=== PATIENT | female | born 1985 | race Hispanic/Latino ===

== ENCOUNTER 2016-09-01 18:17 | Emergency (ER) | payer OTHER ==
[~2016-09-01] VITALS: Ht 170.2 cm; Wt 99.8 kg
[~2016-09-01 18:17] MED LIST: BENZONATATE200 M1 PO; CYCLOBENZAPRINE5 M2 PO; DELTASONE20 MG PO; KEFLEX500 M1 PO; MOBIC15 M1 PO; PROVENTIL HFA6.7 GM INH; ZITHROMAX250 M2 PO
--- NOTE | 2016-09-01 19:37 | ED GI/GU/ABDOMINAL COMPLAINT ---
History of Present Illness General Chief Complaint: Abdominal Pain/Flank Pain Stated Complaint: PT HAVING STOMACH PAINS Source: patient Exam Limitations: no limitations Vital Signs & Intake/Output Vital Signs & Intake/Output Vital Signs Date Time Temp Pulse Resp B/P Pulse O2 O2 Flow FiO2 Ox Delivery Rate 09/01 2120 66 18 120/75 97 09/01 1830 98.1 87 18 153/90 100 Room Air Allergies Coded Allergies: NO KNOWN ALLERGIES (03/09/16) Reconcile Medications Albuterol Sulfate (Proventil Hfa) 90 MCG HFA.AER.AD 2 PUF INH Q4 SOB Meloxicam (Mobic) 15 MG TABLET 1 TAB PO DAILY PRN PAIN/INFLAMMATION Prednisone (Deltasone) 20 MG TABLET 1 TAB PO BID BRONCHITIS Triage Note: 30 YO FEMALE TO TRIAGE C/O LOWER ABD CRAMPING AND WATERY DIARRHEA. STATES HAS BEEN GOING ON FOR APPROX 1 MONTH. Triage Nurses Notes Reviewed? yes ? N Is pt currently ? No HPI: 30-year-old female here for evaluation of abdominal cramping with changes in her stools for one month. She reports some nausea but no vomiting, constipation and then loose stools that are greasy that it occurs in the morning in the evening time. She denies any fever or chills. She reports no alleviating or aggravating factors. She does report that she had [employer] last night and when asked she notes that she has coffee with cream every morning and that triggers a bowel movement. The pain is mild at this time. She has been eating and drinking okay. Past History Travel History Traveled to [place] past 21 day No Medical History Any Pertinent Medical History? 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 No Review of Systems Review of Systems Constitutional: Denies: no symptoms. EENTM: Denies: no symptoms. Respiratory: Denies: no symptoms. Cardiovascular: Denies: no symptoms. GI: Reports: see HPI, abdominal pain, nausea, changes in stool. Genitourinary: Denies: no symptoms. Musculoskeletal: Denies: no symptoms. Skin: Denies: no symptoms. Neurological/Psychological: Denies: no symptoms. Hematologic/Endocrine: Denies: no symptoms. Immunologic/Allergic: Denies: no symptoms. Physical Exam Physical Exam General Appearance: well developed/nourished, no apparent distress, alert, awake , comfortable Head: atraumatic, normal appearance Eyes: Bilateral: normal appearance, PERRL, EOMI. Ears, Nose, Throat, Mouth: hearing grossly normal, moist mucous membrane, Tympanic normal Neck: normal inspection, supple, full range of motion, normal alignment Respiratory: normal breath sounds, chest non-tender, no respiratory distress Cardiovascular: regular rate/rhythm Peripheral Pulses: 2+ radial (R), 2+ radial (L) Gastrointestinal: normal bowel sounds, soft, tenderness (SUPRAPUBIC PAIN, LLQ PAIN) Back: normal inspection, normal range of motion Extremities: normal range of motion Neurologic/Psych: no motor/sensory deficits, awake, alert, oriented x 3, normal gait, normal mood/affect Skin: intact, normal color, warm/dry Core Measures ACS in differential dx? No Severe Sepsis Present: No Septic Shock Present: No Progress Differential Diagnosis: appendicitis, biliary colic, cholecystitis, diverticulitis, inflamm bowel dis, UTI/pyelo Plan of Care: Orders Procedure Date/time Status CULTURE,URINE 09/01 1938 Active URINALYSIS 09/01 1938 Complete LIPASE 09/01 1938 Complete HUMAN BETA HCG SCREEN 09/01 1938 Complete COMPREHENSIVE METABOLIC PANEL 09/01 1938 Complete CBC WITHOUT DIFFERENTIAL 09/01 1938 Complete AMYLASE 09/01 1938 Complete Laboratory Tests 09/01/16 2100: Anion Gap 11, Estimated GFR > 60, BUN/Creatinine Ratio 25.7 H, Glucose 86, Calcium 9.6, Total Bilirubin 0.3, AST 17, ALT 33, Alkaline Phosphatase 51, Total Protein 8.1, Albumin 4.7, Globulin 3.4, Albumin/Globulin Ratio 1.4, Amylase 42, Lipase 64, Total Beta HCG NEGATIVE, CBC w Diff NO MAN DIFF REQ, RBC 4.90, MCV 86.8, MCH 29.0, RDW 13.8, MPV 10.3, Gran % 59.1, Lymphocytes % 29.1, Monocytes % 7.9, Eosinophils % 3.6, Basophils % 0.3, Absolute Granulocytes 4.9, Absolute Lymphocytes 2.4, Absolute Monocytes 0.7 H, Absolute Eosinophils 0.3, Absolute Basophils 0, PUBS MCHC 33.4 09/01/162039: Urinalysis MOD H, Urine Color YEL, Urine Clarity HAZY H, Urine pH 7.5, Ur Specific [place] 1.020, Urine Protein NEG, Urine Ketones NEG, Urine Nitrite NEG, Urine Bilirubin NEG, Urine Urobilinogen 0.2, Ur Leukocyte Esterase NEG, Ur Microscopic SEDIMENT EXAMINED, Ur Epithelial Cells FEW, Urine Hemoglobin TRACE- INTACT, Urine Glucose NEG Microbiology 09/01 2039 URINE ROUT: Urine Culture - RECD Initial ED EKG: none Comments: PATIENT: MARY URIBE PRESENT AGE: 30 PATIENT ACCOUNT NO: [id number] : 87 LOCATION: [facility] ORDERING PHYSICIAN: ARLENE ALBARRAN APRN SERVICE DATE: 09/01/16 EXAM TYPE: CAT - CT ABD & PELVIS W IV CONTRAST EXAMINATION: CT ABDOMEN AND PELVIS WITH CONTRAST CLINICAL INFORMATION: Evaluate for appendicitis. COMPARISON: No relevant prior studies are available for comparison. TECHNIQUE: Multidetector volumetric imaging was performed of the abdomen and pelvis before and after the IV administration of 94 mL of Optiray 320 intravenous contrast. Sagittal and coronal reformatted images were obtained on the technologist's workstation. DLP: 519.72 mGy-cm FINDINGS: LUNG BASES: The visualized lung bases are unremarkable. LIVER, GALLBLADDER, AND BILIARY TREE: The liver is normal in size, shape, and attenuation. No focal hepatic lesion or biliary ductal dilatation is present. The gallbladder is unremarkable with no evidence of radiopaque gallstones, gallbladder wall thickening, or obvious pericholecystic inflammatory changes. PANCREAS: Unremarkable. SPLEEN: Unremarkable. ADRENAL GLANDS: Unremarkable. KIDNEYS AND URETERS: The kidneys are normal in size, shape, and attenuation. No hydronephrosis, hydroureter, or calculi seen. No perinephric stranding. BLADDER: Nondistended. GASTROINTESTINAL TRACT: The small and large bowel are unremarkable. The appendix is unremarkable. ABDOMINAL WALL: No significant hernia is appreciated. LYMPH NODES: Normal. VASCULAR: There is no abdominal aortic dilatation. The IVC is unremarkable. PELVIC VISCERA: The uterus and adnexa are unremarkable. OSSEOUS STRUCTURES: No lytic or blastic osseous lesion is identified. IMPRESSION: 1. Normal appendix. 2. No large or small bowel obstruction. 3. No hydronephrosis or nephrolithiasis. DICTATED BY: ZACH DAVIS MD DATE/TIME DICTATED:09/01/162156 CABLE WEAVER:DELIA DATE/TIME TRANSCRIBED:09/01/162156 CONFIDENTIAL, DO NOT COPY WITHOUT APPROPRIATE AUTHORIZATION. <Electronically signed in Other Vendor System> SIGNED BY: ZACH DAVIS MD 2211 10:25 PM explained CAT scan results along with blood work to patient. She is feeling well with no further pain or nausea. She will be discharged home to follow up with gastroenterology and Reina Plummer DO given has a primary care provider. Departure Departure Time of Disposition: 2219 Disposition: HOME OR SELF CARE Condition: Stable Clinical Impression Primary Impression: Abdominal pain Qualifiers: Abdominal location: unspecified location Qualified Code: R10.9 - Unspecified abdominal pain Ref[facility] Additional Instructions: Please follow up with Reina Plummer DO this week and Dr. Hester, GI. Please return to the emergency department for any increased abdominal pain, nausea, vomiting, diarrhea, fever or chills. Departure Forms: Customer Survey General Discharge Information
[2016-09-01 21:06] LABS: ABSOLUTE BASOPHIL COUNT 0 /CUMM (0.0-0.2); ABSOLUTE EOSINOPHIL COUNT 0.3 /CUMM (0.0-0.7); ABSOLUTE GRANULOCYTE CT 4.9 /CUMM (1.4-6.5); ABSOLUTE LYMPH COUNT 2.4 /CUMM (1.2-3.4); ABSOLUTE MONOCYTE COUNT 0.7 /CUMM (0.10-0.60); BASOPHIL % 0.3 % (0.0-2.0); EOSINOPHIL % 3.6 % (0-5); GRANULOCYTE % 59.1 % (42.2-75.2); HEMATOCRIT 42.5 % (37-47); MEAN CORPUSCULAR HGB CONC 33.4 G/DL (33.0-37.0); MEAN CORPUSCULAR VOLUME 86.8 FL (81.0-99.0); MEAN PLATELET VOLUME 10.3 FL (7.4-10.4); PLATELET COUNT 257 /CUMM (130-400); RBC DISTRIBUTION WIDTH 13.8 % (11.5-14.5); WHITE BLOOD CELL COUNT 8.3 /CUMM (4.8-10.8)
[2016-09-01 21:20] VITALS: BP 120/75
--- NOTE | 2016-09-01 22:12 | CT SCAN REPORT ---
EXAMINATION: CT ABDOMEN AND PELVIS WITH CONTRAST CLINICAL INFORMATION: Evaluate for appendicitis. COMPARISON: No relevant prior studies are available for comparison. TECHNIQUE: Multidetector volumetric imaging was performed of the abdomen and pelvis before and after the IV administration of 94 mL of Optiray 320 intravenous contrast. Sagittal and coronal reformatted images were obtained on the technologist's workstation. DLP: 519.72 mGy-cm FINDINGS: LUNG BASES: The visualized lung bases are unremarkable. LIVER, GALLBLADDER, AND BILIARY TREE: The liver is normal in size, shape, and attenuation. No focal hepatic lesion or biliary ductal dilatation is present. The gallbladder is unremarkable with no evidence of radiopaque gallstones, gallbladder wall thickening, or obvious pericholecystic inflammatory changes. PANCREAS: Unremarkable. SPLEEN: Unremarkable. ADRENAL GLANDS: Unremarkable. KIDNEYS AND URETERS: The kidneys are normal in size, shape, and attenuation. No hydronephrosis, hydroureter, or calculi seen. No perinephric stranding. BLADDER: Nondistended. GASTROINTESTINAL TRACT: The small and large bowel are unremarkable. The appendix is unremarkable. ABDOMINAL WALL: No significant hernia is appreciated. LYMPH NODES: Normal. VASCULAR: There is no abdominal aortic dilatation. The IVC is unremarkable. PELVIC VISCERA: The uterus and adnexa are unremarkable. OSSEOUS STRUCTURES: No lytic or blastic osseous lesion is identified. IMPRESSION: 1. Normal appendix. 2. No large or small bowel obstruction. 3. No hydronephrosis or nephrolithiasis.
== END 2016-09-01 22:30 ==
LOC: ERH 18:17
PROVIDERS: Nurse Practitioner Family
DX: R10.30 Lower abdominal pain, unspecified (principal)
CPT/HCPCS: 74177; 81001; 87086; 96361; 96374; J2405